=== PATIENT | female | born 1995 | race Hispanic/Latino ===

== ENCOUNTER → 2017-09-19 | Outpatient (REF) | payer OTHER | LOC: M SFHCLERA 16:29 | DX: J02.9 Acute pharyngitis, unspecified (principal) ==

== ENCOUNTER → 2018-04-05 | Outpatient (CLI) | payer OTHER | LOC: M LRY 15:57 | DX: S89.91XA Unspecified injury of right lower leg, initial encounter (principal); X58.XXXA Exposure to other specified factors, initial encounter; Y92.9 Unspecified place or not applicable | CPT/HCPCS: 73564; G0463 ==